=== PATIENT | female | born 1990 | race Caucasian/White ===

== ENCOUNTER 2021-04-18 14:12 | Emergency (ER) | payer BC ==
[~2021-04-18] VITALS: Ht 154.9 cm; Wt 59.0 kg
[~2021-04-18 14:12] MED LIST: LIDOcaine 1% W/epiNEPHrine 1:100,000 20ml vial ONE
[2021-04-18 14:38] VITALS: BP 119/77
[2021-04-18] MEDS ORDERED: naproxen 500mg tablet PO ONE (15:30)
[2021-04-18] MEDS ORDERED: acetaminophen 325mg tablet PO ONE (15:30)
[2021-04-18] MEDS ORDERED: ACET-1025 PO (15:32)
[2021-04-18] MEDS ORDERED: AMOX500C2 PO (15:32)
[2021-04-18] MEDS ORDERED: ONDA4TAB6 PO (15:32)
== END 2021-04-18 15:55 | disposition home or self-care (01) ==
LOC: ER 14:13
DX: M54.2 Cervicalgia (principal); R53.1 Weakness; G43.909 Migraine, unspecified, not intractable, without status migrainosus; Z79.2 Long term (current) use of antibiotics; Z79.899 Other long term (current) drug therapy
CPT/HCPCS: 20552; 99284